=== PATIENT | male | born 1995 | race Two or more races ===

== ENCOUNTER 2017-02-09 04:24 | Emergency (ER) | payer SELFPAY ==
[~2017-02-09] VITALS: Ht 172.7 cm; Wt 72.6 kg
[2017-02-09 04:29] VITALS: BP 117/68
--- NOTE | 2017-02-09 04:32 | NUR ---
PT BIBRA 38, PT AMBULATORY TO ER BED 8, PER RA "PT HAD 8 BEERS, WOULDN'T EXIT THE UBER AND 911 WAS CALLED" PT AOX4 RR EVEN AND UNLABORED. NO SOB NOTED. NAD NOTED. NO NVD AT THIS TIME. PT PLACED ON MONITOR WAITING FOR MD GELLER.
--- NOTE | 2017-02-09 04:32 | NUR ---
DR. NORTON AT BEDSIDE FOR EVAL.
--- NOTE | 2017-02-09 04:53 | NUR ---
Patient discharged to home in stable condition. Written and verbal after care instructions given. Patient verbalizes understanding of instruction. ambulatory with a steady gait. instructed not to drive. pt verbalize understanding.
== END 2017-02-09 04:55 | disposition home or self-care (01) ==
LOC: ER 04:26
DX: F10.129 Alcohol abuse with intoxication, unspecified (principal); R11.10 Vomiting, unspecified; R79.89 Other specified abnormal findings of blood chemistry
CPT/HCPCS: 82962-TC; A4606; Z7610